=== PATIENT | male | born 1945 | race Caucasian/White ===

== ENCOUNTER → 2021-03-07 08:18 | Outpatient (CLI) | payer MEDICARE, SELFPAY ==
--- NOTE | 2021-03-07 08:23 | US_ITS ---
PROCEDURE: US ABDOMEN LIMITED CLINICAL INDICATION: RUQ ABD PAIN COMPARISON: No exams were available for comparison FINDINGS: PANCREAS: Unremarkable. No obvious mass or abnormal fluid collection. No ductal dilatation LIVER: No focal liver lesions demonstrated. Homogeneous echogenicity. No intrahepatic biliary ductal dilatation evident. There is appropriate direction of blood flow within a non dilated portal vein RIGHT KIDNEY: Unremarkable. Normal size and echogenicity. No hydronephrosis GALLBLADDER: Gallbladder somewhat distended at 10 4 cm. No gallstones, pericholecystic fluid, or biliary dilatation is evident. Common bile duct is normal at 2 mm. IMPRESSION: Mildly distended gallbladder possibly due to patient's fasting state otherwise negative gallbladder ultrasound Dictated by: Ortega Garcia MD 03/07/2021 15:31 Ortega Garcia MD in [place] 03/07/2021 15:31
== END ==
PROVIDERS: PCP Family Medicine; Visit Provider Family Medicine
DX: R10.11 Right upper quadrant pain (principal)
CPT/HCPCS: 76705

== ENCOUNTER → 2021-03-21 08:51 | Outpatient (CLI) | payer MEDICARE, SELFPAY ==
[2021-03-21 10:09] LABS: Blood Urea Nitrogen 12 mg/dl (9-20); Estimated Glomerular Filt Rate 82 ml/min (>60); GFR (African American) 100 ML/MIN (>60)
== END ==
PROVIDERS: Visit Provider Surgery
DX: Z01.812 Encounter for preprocedural laboratory examination (principal); Z11.52 Encounter for screening for COVID-19; Z12.11 Encounter for screening for malignant neoplasm of colon
CPT/HCPCS: 36415; 82565; 84520; U0003

== ENCOUNTER 2021-03-24 10:57 | Day surgery (SDC) | payer MEDICARE, SELFPAY ==
[2021-03-19 09:38] VITALS: BMI 27.6
[2021-03-24 11:39] VITALS: BP 133/85; PULSE 51; RESP 18; TEMP 36.2; O2SAT 97
[2021-03-24 12:07] VITALS: O2SAT 97
--- NOTE | 2021-03-24 12:43 | HMH.ANESCL ---
[facility] Anesthesia Checklist - Structural Data Admitted From: Home Planned Operative Procedure/s: colonoscopy Consent for Planned Operative Procedure(s) Verified: Yes - Additional verifications Anesthesia Reactions: No - Airway Assessment C-Spine Mobility Assessed: Yes TMJ Mobility Assessed: Yes Dentition: Poor Dentition - Neurological Assessment Level of Consciousness: Awake, Alert, Appropriate - Anesthesia Plan Anesthesia Risk discussed: Yes Anesthesia Plan: Verified ASA Class: II Anesthesia Type: MAC [facility] History I have reviewed the patient's past medical history: Yes Medical History: Denies:: Cancer, Diabetes Mellitus Type 1, Diabetes Mellitus Type 2, Internal Pacemaker, Lung Disease, MRSA, Seizures *Have you ever received a pneumonia vaccine?: Yes *Have you received a flu vaccine this season?: Yes Anesthesia experience/problems:: none Other Surgeries: Yes: Appendectomy, Colonoscopy. No: Pacemaker Amputation: No Fractures: No - *Social History Smoking Status: Never smoker Alcohol Intake: current Substance Use Type: denies use *Occupational Status:: retired Housing: house Household Members: spouse *Travel in the last 8 weeks: None Family Hx:: No significant family history
[2021-03-24 12:50] VITALS: BP 128/72; PULSE 71; RESP 12; TEMP 36.3; O2SAT 94
--- NOTE | 2021-03-24 12:51 | HMH.PROC ---
[facility] Procedure Note Procedure Note:: Colonoscopy Procedure Report: Colonoscopy with cold snare polypectomy Endoscopist: Leander Lizarraga II, MD Referring physician: Parvez Corbin MD Date of Procedure: March 24, 2021 Equipment: Olympus 190 variable stiffness pediatric colonoscope Sedation: MAC sedation Indication: Mr. Cazares is a 75-year-old gentleman who had a wide-based ascending colon polyp in February 2017. This was removed in piecemeal and was adenomatous. He had a repeat surveillance colonoscopy on March 14, 2018 and had 3 colon polyps (ascending x1 (13 mm) and diminutive descending and sigmoid x2) which were removed. The patient reports no abdominal pain, weight loss, change in his bowel habits or rectal bleeding. He does take Konsyl daily. He reports no family history of colon cancer. He has had some recent right flank abdominal pain. His recent ultrasound of the gallbladder did show some gallbladder distention but this was felt to be related to the fasting state. He is due for CT scan of the abdomen. Procedure: Prior to the procedure, a history and physical exam was performed, and patient's medications and allergies were reviewed. The risks, benefits and alternatives of the sedation and procedure were discussed with the patient. All questions were answered and informed consent was obtained. The patient was brought to the procedure room. Patient identification and proposed procedure were verified by the physician and the nurse. The patient was placed in a left lateral decubitus position and the scope was passed under direct vision. Throughout the procedure, the patient's blood pressure, pulse, and oxygen saturations were monitored continuously. The colonoscopy was accomplished without difficulty. The patient tolerated the procedure well. Findings: On digital rectal examination there was normal rectal tone. There were no external hemorrhoids. The colonoscope was introduced through the anal canal to the rectum and advanced to the cecum. The ileocecal valve and appendiceal orifice were identified. The scope was advanced a short distance into the ileum which appeared grossly normal. The scope was then withdrawn into the colon. The cecum was normal. Once again within the ascending colon was a very flat wide-based polyp that extended nearly 1/3 the circumference of the colon and was maximally greater than 30 mm in width over at least 1 haustral fold. Piecemeal removal was performed. There was a second diminutive 4 mm polyp in the rectum. There were scattered diverticuli throughout the descending and sigmoid colon (LEFT colon). The rectum itself was normal. Upon retroflexion within the rectum there were grade 2 internal hemorrhoids. The preparation was excellent throughout with [place] Preparation Score of 9. The cecal time was 12 minutes. Impression: 1. Large advanced adenomatous polyp (ascending colon)?greater than 30 mm width over haustral fold 2. Diminutive rectal polyp 3. Left-sided diverticulosis 4. Grade 2 internal hemorrhoids Plan: I do feel that the ascending colon polyp may require EMR or EMD (endoscopic mucosal dissection). I will discuss this with the patient and family. I will follow-up patient's upcoming CT scan. I would like to obtain liver/pancreatic chemistries as well.
[2021-03-24 13:00] VITALS: BP 140/42; PULSE 65; RESP 16; O2SAT 99
[2021-03-24 13:10] VITALS: BP 141/80; PULSE 67; RESP 16; O2SAT 99
[2021-03-24 13:20] VITALS: BP 140/82; PULSE 60; RESP 16; TEMP 36.3; O2SAT 99
[2021-03-24 13:32] LABS: Basophils % 0.4 % (0.1-2.0); Eosinophils # 0.1 K/mm3 (0.0-0.4); Eosinophils % 2.3 % (0.1-12.0); Hematocrit 42.3 % (42.0-52.0); Hemoglobin 14.7 g/dL (14.1-18.0); Lymphocytes # 1.2 K/mm3 (0.7-4.5); Lymphocytes % 25.8 % (10-50); Mean Corpuscular HGB Conc 34.7 g/dL (31.8-35.4); Mean Corpuscular Hemoglobin 31.1 pg (27.0-31.2); Mean Corpuscular Volume 89.6 fl (80-94); Monocytes # 0.3 K/mm3 (0.1-1.0); Monocytes % 5.8 % (1.7-9.3); Neutrophils # 3.1 K/mm3 (1.8-7.8); Neutrophils % 65.8 % (37.0-80.0); Platelet Count 222 K/mm3 (142-424); Red Blood Count 4.72 M/mm3 (4.60-6.20); Red Cell Distribution Width 13.6 % (11.5-17.5); White Blood Count 4.7 K/mm3 (4.8-10.8)
[2021-03-24 13:36] LABS: Chloride 104 mmol/L (98-107)
[2021-03-24 13:37] LABS: Potassium 4.6 mmoL/L (3.5-5.1); Sodium 140 mmol/L (136-145)
[2021-03-24 13:39] LABS: Alanine Aminotransferase 23 U/L (12-78); Aspartate Amino Transferase 28 U/L (17-59); Blood Urea Nitrogen 8 mg/dl (9-20); Creatinine Clearance Estimated 81 mL/min (50-200); Estimated Glomerular Filt Rate 94 ml/min (>60); GFR (African American) 114 ML/MIN (>60)
[2021-03-24 13:40] LABS: Albumin Level 3.8 g/dl (3.5-5.0); Albumin/Globulin Ratio 1.3 (1.1-1.8); Alkaline Phosphatase 37 U/L (38-126); Anion Gap 11.6 mEq/L (5-15); Bilirubin,Total 0.5 mg/dl (0.2-1.3); Calcium 8.7 mg/dl (8.4-10.2); Carbon Dioxide 29 mmol/L (22.0-30.0); Globulin 2.9 g/dL (1.3-3.2); Glucose 102 mg/dl (74-100); Total Protein,Serum 6.7 g/dl (6.3-8.2)
[2021-03-24 13:54] LABS: Alanine Aminotransferase 22 U/L (12-78); Aspartate Amino Transferase 27 U/L (17-59)
[2021-03-24 13:55] LABS: Iron 89 ug/dL (49-181); Lipase 71 U/L (23-300)
[2021-03-24 13:56] LABS: Amylase < 30 U/L (30-110)
== END 2021-03-24 13:24 | disposition home or self-care (01) ==
LOC: OUTP 11:00
PROVIDERS: PCP Family Medicine; Visit Provider Internal Medicine Gastroenterology
PROC: 0DJD8ZZ Inspection of Lower Intestinal Tract, Via Natural or Artificial Opening Endoscopic (ICD-10-PCS; CPT 45378; principal; 2021-03-24 12:00)
DX: Z12.11 Encounter for screening for malignant neoplasm of colon (principal); K64.1 Second degree hemorrhoids; K63.5 Polyp of colon; K62.1 Rectal polyp; K57.30 Diverticulosis of large intestine without perforation or abscess without bleeding; Z86.010 Personal history of colon polyps
CPT/HCPCS: 45385; 36415; 80053; 82150; 83540; 83690; 84450; 84460; 85025; 88305

== ENCOUNTER → 2021-03-25 08:46 | Outpatient (CLI) | payer MEDICARE, SELFPAY ==
--- NOTE | 2021-03-25 08:46 | CT_ITS ---
PROCEDURE: CT ABDOMEN PELVIS W CON CLINICAL INDICATION: abdominal pain Right upper quadrant pain, right-sided pain COMPARISON: No exams were available for comparison TECHNIQUE: IV Contrast: 75ML Isovue 370 Oral Contrast 450ml Redicat Axial images obtained with sagittal and coronal reformats. All CT scans at the facility use one or more dose reduction, viz: automated exposure control, ma/kV adjustment per patient size (including targeted exams where dose is matched to indication, i.e. head), or iterative reconstruction technique. FINDINGS: LOWER THORAX: 6 mm subpleural nodule right middle lobe anteriorly nonspecific incompletely image. Small hiatal hernia. ABDOMEN & PELVIS: Fatty liver. The spleen, pancreas, and left adrenal gland have an unremarkable appearance. There is a 1.6 cm right adrenal nodule which is indeterminate. Unremarkable appearing gallbladder. No renal or ureteral calculi. No hydronephrosis. Given history of prior appendectomy. No intestinal obstruction or free air. Colonic diverticula are present. No evidence of diverticulitis. The prostate is slightly prominent at 4.9 cm. Unremarkable appearing urinary bladder. No pelvic mass or abnormal fluid collection. There are small bilateral inguinal hernias containing fat. Atherosclerotic changes are present within the abdominal aorta with minimal ectasia of the aorta at 2.6 cm. No acute bony findings. IMPRESSION: 1. No acute finding. 2. Indeterminate right adrenal nodule. Adrenal CT without and with contrast and with delayed imaging may further characterize. 3. Colonic diverticulosis without diverticulitis. 4. Minimal fusiform dilatation of the mid abdominal aorta at 2.6 cm. 5. Nonspecific 6 mm right middle lobe subpleural nodule. Consider six-month follow-up to confirm stability Dictated by: Ortega Garcia MD 03/26/2021 07:26 Ortega Garcia MD in [place] 03/26/2021 07:26
== END ==
PROVIDERS: PCP Family Medicine; Visit Provider Surgery
DX: R10.9 Unspecified abdominal pain (principal); R10.11 Right upper quadrant pain
CPT/HCPCS: 74177; Q9967

== ENCOUNTER → 2021-03-27 10:14 | Outpatient (CLI) | payer MEDICARE, SELFPAY ==
--- NOTE | 2021-03-27 10:14 | NM_ITS ---
PROCEDURE: NM HEPATOBILIARY W PHARM CLINICAL INDICATION: Right upper quad pain COMPARISON: No exams were available for comparison TECHNIQUE: DOSE: 7.92 mCi technetium Choletec FINDINGS: Homogeneous activity is present within the hepatic parenchyma. Activity is present in the gallbladder by 25 minutes. Activity is present in the small bowel by 10 minutes. The gallbladder ejection fraction is calculated to be 73 percent. No pain reported with fatty meal ingestion IMPRESSION: Normal hepatobiliary scan and gallbladder ejection fraction Dictated by: Ortega Garcia MD 03/27/2021 15:54 Ortega Garcia MD in [facility] 03/27/2021 15:54
== END ==
PROVIDERS: PCP Family Medicine; Visit Provider Surgery
DX: R10.11 Right upper quadrant pain (principal)
CPT/HCPCS: 78227; A9537

== ENCOUNTER → 2021-04-07 09:26 | Outpatient (CLI) | payer MEDICARE, SELFPAY | PROVIDERS: Visit Provider Internal Medicine Gastroenterology | DX: Z01.812 Encounter for preprocedural laboratory examination (principal); Z11.52 Encounter for screening for COVID-19 | CPT/HCPCS: U0003 ==

== ENCOUNTER → 2021-12-25 08:35 | Outpatient (CLI) | payer MEDICARE, SELFPAY ==
[2021-12-25 09:11] LABS: Blood Urea Nitrogen 15 mg/dl (9-20); Estimated Glomerular Filt Rate 73 ml/min (>60); GFR (African American) 88 ML/MIN (>60)
--- NOTE | 2021-12-25 10:13 | CT_ITS ---
FINAL REPORT TECHNIQUE: After the administration of intravenous contrast, axial images through the chest were performed by computed tomography. This study was performed with techniques to keep radiation doses as low as reasonably achievable, (ALARA). Individualized dose reduction techniques using automated exposure control or adjustment of mA and/or kV according to the patient's size were employed. CLINICAL HISTORY: pulmonary nodule, 6 mos fu to previous scan here, Nonspecific 6 mm right middle lobe subpleural nodule. COMPARISON: Abdomen and pelvis CT dated March 25, 2021 FINDINGS: Mediastinal vasculature is well opacified. There is no axillary adenopathy. There is no hilar or mediastinal adenopathy. The heart size is normal. There is no pericardial or pleural effusion. There is a small hiatal hernia. Limited images of the upper abdomen are unremarkable. The lung window images demonstrate a linear pleural based density in the right middle lobe measuring approximately 5 mm in greatest dimension. This is well seen on image 55 of series 4. It is stable as compared to previous. There is mild biapical pleural and parenchymal scarring. IMPRESSION: Stable pleural based opacity in the right middle lobe, favored favor to be post inflammatory. Reviewed, Interpreted and Dictated by Ramiro Abraham MD Transcribed by Ashley James Authenticated by Ramiro Abraham MD on 12/25/2021 02:21:07 PM [facility]
--- NOTE | 2021-12-25 10:22 | CT_ITS ---
FINAL REPORT TECHNIQUE: Pre- and postcontrast images of the abdomen were performed by computed tomography. This study was performed with techniques to keep radiation doses as low as reasonably achievable (ALARA). Individualized dose reduction techniques using automated exposure control or adjustment of mA and/or kV according to the patient's size were employed. CLINICAL HISTORY: abdominal pain, This is a 6 mos f/u to a previous scan that was done here. concern for nodule on right adrenal COMPARISON: March 25, 2021 FINDINGS: There is scarring in the lung bases. There is a small sliding-type hiatal hernia. There is mild fatty infiltration of the liver. The spleen is unremarkable. The left adrenals is normal. A right adrenal nodule is again seen measuring approximately 2 cm in greatest dimension. It demonstrates a mean attenuation value of 1 Hounsfield units on the pre infusion images, 52 Hounsfield units on the dynamic infused images and 21 Hounsfield units on the 10 minute delayed images. Overall, features are consistent with a benign adenoma. The pancreas is unremarkable. The kidneys enhance appropriately. There are moderate vascular calcifications in the abdominal aorta and iliac vessels. 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 Reviewed, Interpreted and Dictated by Ramiro Abraham MD Transcribed by Ashley James Authenticated by Ramiro Abraham MD on 12/25/2021 02:21:12 PM [facility]
== END ==
PROVIDERS: PCP Family Medicine; Visit Provider Surgery
DX: E27.8 Other specified disorders of adrenal gland (principal); R91.8 Other nonspecific abnormal finding of lung field
CPT/HCPCS: 36415; 71260; 74170; 82565; 84520; Q9967

== ENCOUNTER → 2022-01-05 10:08 | Outpatient (CLI) | payer MEDICARE, SELFPAY | PROVIDERS: Visit Provider Internal Medicine Gastroenterology | DX: Z01.812 Encounter for preprocedural laboratory examination (principal); Z11.52 Encounter for screening for COVID-19 | CPT/HCPCS: C9803; U0003; U0005 ==

== ENCOUNTER → 2023-08-04 12:35 | Outpatient (CLI) | payer MEDICARE, SELFPAY ==
[2023-08-04 14:32] LABS: Prostate Specific Ag Screen 2.9 ng/ml (0.0-4.0)
== END ==
PROVIDERS: PCP Family Medicine; Visit Provider Family Medicine
DX: Z12.5 Encounter for screening for malignant neoplasm of prostate (principal)
CPT/HCPCS: 36415; G0103

== ENCOUNTER 2025-02-15 10:06 | Outpatient (CLI) | payer MEDICARE, SELFPAY ==
--- NOTE | 2025-02-15 | US_ITS ---
FINAL REPORT CLINICAL HISTORY: ABNORMAL SCREENING OF TOES BY HOME HEALTH NURSE FINDINGS: ANKLE-BRACHIAL PRESSURE INDICES Pressure indices are as follows: RIGHT LOWER EXTREMITY: Ankle-brachial pressure index: 1.34 Comments: Normal LEFT LOWER EXTREMITY: Ankle-brachial pressure index: 1.33 Comments: Normal IMPRESSION: No evidence of significant obstructive peripheral vascular disease of the lower extremities Reviewed, Interpreted and Dictated by Heavenly Abarca MD Transcribed by Karly More Authenticated and [facility]
== END 2025-02-15 23:59 | disposition home or self-care (01) ==
LOC: RT 10:08
PROVIDERS: PCP Family Medicine; Visit Provider Family Medicine
DX: I73.9 Peripheral vascular disease, unspecified (principal)
CPT/HCPCS: 93923

== ENCOUNTER 2025-04-26 07:20 | Day surgery (SDC) | payer MEDICARE, SELFPAY ==
[2025-04-24 14:25] VITALS: BMI 28.7
--- NOTE | 2025-04-25 10:54 | EXP.HP ---
History of Present Illness *Admission Date: 04/25/25 *Reason for visit:: Personal history of adenomatous colon polyps *History of present illness: Mr. Cazares is a 79-year-old gentleman who is here for follow-up screening/surveillance colonoscopy. He had a wide-based ascending colon polyp (adenomatous) in February 2017. This was removed in piecemeal and was adenomatous. He had a repeat surveillance colonoscopy on March 14, 2018 and had 3 colon polyps (ascending x1 (13 mm) and diminutive descending and sigmoid x2) which were removed. His last colonoscopy in March 2021 did show a 30 mm advanced adenoma of the ascending colon which was removed via piecemeal resection and extended one third the circumference of the colon. Pathology showed tubular adenoma without high-grade dysplasia. [facility] Disclaimer: The information contained in this section may have been updated after the patient was seen, as this information can be updated by other users. Medical History GERD (gastroesophageal reflux disease) Hypertension Surgical History Colonoscopy planned History of appendectomy Family History Other No significant family history Social History (Updated 04/26/25 @ 08:19 by Anjali Alaniz RN) Smoking Status: Never smoker alcohol intake: never substance use type: denies use current occupational status: retired Travel in the last 8 weeks?: None household members: spouse housing: house current occupational exposures/hazards: No caffeine: Yes Have you lived/traveled outside US in past 30 days?: No Contact w/someone who lives/traveled outside US past 30 days?: No Exposure to someone with infectious disease in past 14 days?: No Do you have a fever (greater than 100.4 F or 38 C)?: No Have you tested positive for COVID-19?: No Exposed to someone with COVID-19 in past 14 days?: No Do you have a sore throat?: No Do you have a cough?: No Do you have any weakness?: No Are you experiencing any nausea/vomitting?: No Do you have any diarrhea?: No Are you experiencing any unusual bleeding?: No Do you have any muscle aches/pain?: No Do you have any abdominal pain?: No Are you experiencing loss of taste or smell?: No Other Medical History Have you received the Flu Vaccine for this season: Yes Have you received the Pneumonia Vaccine: Yes Review of Systems Review of Systems Review of systems (narrative): Negative *Cardiovascular Comments: Negative *Gastrointestinal Comments: Negative *Genitourinary Comments: Negative *Musculoskeletal Comments: Negative *Neurologic Comments: Negative Meds Home Medications and Allergies Home Medications ?Medication ?Instructions ?Recorded ?Confirmed ?Type omeprazole magnesium 20 mg 20 mg PO DAILY GERD 03/14/21 04/24/25 History tablet,delayed release (Prilosec OTC) sodium,potassium,mag sulfates 17.5 See Rx Instructions PO .COMPLEX 04/13/25 Rx gram-3.13 gram-1.6 gram oral soln #354 mL (Suprep Bowel Prep Kit) irbesartan 300 mg tablet 300 mg PO DAILY 04/26/25 04/26/25 History New Prescriptions to Start Prescriptions: Allergies Allergy/AdvReac Type Severity Reaction Status Date / Time No Known Drug Allergies Allergy Unknown na Verified 04/26/25 08:23 (NKDA) Exam Data for Last 24 hours I & O for Last 24 hours: Intake & Output 04/22/25 04/23/25 04/24/25 04/25/25 23:59 23:59 23:59 23:59 Weight 200 lb *Routine HEENT Exam Head: Present normocephalic Eye: Present EOMI and PERRL ENT: Present mucous membranes moist *Routine Neck Exam Neck: Present supple *Routine Respiratory Exam Respiratory: Present CTA bilaterally *Routine Cardiovascular Exam Cardiovascular: Present RRR *Routine Abdominal Exam Abdominal: Present soft and normoactive bowel sounds; Absent tenderness *Routine Rectal Exam Rectal:: deferred *Routine Genitalia Exam Genitalia:: deferred *Routine Extremities Exam Extremities: Absent cyanosis, clubbing or edema *Routine Skin Exam Skin: Present warm; Absent rash *Routine Neurological Exam Neurological: Present alert and oriented X3 Assessment and Plan *Assessment and plan (1) Personal history of adenomatous and serrated colon polyps: Status: Acute Category: Medical Code(s): Z86.0101 - Personal history of adenomatous and serrated colon polyps (2) Screening for colon cancer: Status: Acute Category: Medical Code(s): Z12.11 - Encounter for screening for malignant neoplasm of colon (3) Adenomatous polyp of ascending colon: Status: Acute Category: Medical Code(s): D12.2 - Benign neoplasm of ascending colon Plan A/P: 1. Large advanced adenomatous colon polyp of ascending colon and personal history of adenomatous colon polyps is the preprocedural diagnosis. The patient will be anesthetized/sedated using MAC sedation. The patient has been seen and examined. Cardiac and lung assessment prior to the examination is stable. Proceed with planned surveillance colonoscopy.
[2025-04-26 08:10] VITALS: BP 186/81; PULSE 51; RESP 16; TEMP 36.2; O2SAT 98; BMI 28.7
[2025-04-26] MEDS: LACTATED RINGERS 1000ML 1,000 ML 50 ML IV (08:21)
--- NOTE | 2025-04-26 08:32 | EXP.ANES.CKL ---
[facility] Disclaimer: The information contained in this section may have been updated after the patient was seen, as this information can be updated by other users. Medical History GERD (gastroesophageal reflux disease) Hypertension Surgical History Colonoscopy planned History of appendectomy Family History Other No significant family history Social History (Updated 04/26/25 @ 08:19 by Anjali Alaniz RN) Smoking Status: Never smoker alcohol intake: never substance use type: denies use current occupational status: retired Travel in the last 8 weeks?: None household members: spouse housing: house current occupational exposures/hazards: No caffeine: Yes Have you lived/traveled outside US in past 30 days?: No Contact w/someone who lives/traveled outside US past 30 days?: No Exposure to someone with infectious disease in past 14 days?: No Do you have a fever (greater than 100.4 F or 38 C)?: No Have you tested positive for COVID-19?: No Exposed to someone with COVID-19 in past 14 days?: No Do you have a sore throat?: No Do you have a cough?: No Do you have any weakness?: No Are you experiencing any nausea/vomitting?: No Do you have any diarrhea?: No Are you experiencing any unusual bleeding?: No Do you have any muscle aches/pain?: No Do you have any abdominal pain?: No Are you experiencing loss of taste or smell?: No [facility] Anesthesia Checklist Patient Identification Patient Identification: Arm Band and Verbal (Name & ) Structural Data Admitted From: Home Planned Operative Procedure/s: colonoscopy Verified Documents: Surgical Consent NPO Status Verified Time NPO: 00:00 Chart Verification Results Verified: None Additional verifications Anesthesia Reactions: No Airway Assessment Mallampati Score:: Class II C-Spine Mobility Assessed: Yes TMJ Mobility Assessed: Yes Dentition: Good Dentition Neurological Assessment Level of Consciousness: Awake, Alert and Appropriate Hx Seizures: No Numbness or tingling in extremities: No Anesthesia Plan Anesthesia Risk discussed: Yes Anesthesia Plan: Verified ASA Class: II Anesthesia Type: MAC
--- NOTE | 2025-04-26 08:57 | HMH.PROCNOTE ---
[facility] Procedure Note Date: 04/26/25 Time: 09:33 Procedure Note:: Colonoscopy Procedure Report: Colonoscopy with EMR (endoscopic mucosal resection (submucosal injection and snare cautery with soft coagulation) and cold snare polypectomy Endoscopist: Leander Lizarraga II, MD Referring physician: Parvez Corbin MD Date of Procedure: April 26, 2025 Equipment: Olympus [id number] adult colonoscope Sedation: MAC sedation Indication: Mr. Cazares is a 79-year-old gentleman who is here for follow-up screening/surveillance colonoscopy. He had a wide-based ascending colon polyp (adenomatous) in February 2017. This was removed in piecemeal and was adenomatous. He had a repeat surveillance colonoscopy on March 14, 2018 and had 3 colon polyps (ascending x1 (13 mm) and diminutive descending and sigmoid x2) which were removed. His last colonoscopy in March 2021 did show a 30 mm advanced adenoma of the ascending colon which was removed via piecemeal resection and extended one third the circumference of the colon. Pathology showed tubular adenoma without high-grade dysplasia. The patient was referred to the [facility] where he had EMR (endoscopic mucosal resection) and states that the polyp was completely removed. He reports no abdominal pain, weight loss, change in his bowel habits or rectal bleeding. He reports no family history of colon cancer. Procedure: Prior to the procedure, a history and physical exam was performed, and patient's medications and allergies were reviewed. The risks, benefits and alternatives of the sedation and procedure were discussed with the patient. All questions were answered and informed consent was obtained. The patient was brought to the procedure room. Patient identification and proposed procedure were verified by the physician and the nurse. The patient was placed in a left lateral decubitus position and the scope was passed under direct vision. Throughout the procedure, the patient's blood pressure, pulse, and oxygen saturations were monitored continuously. The colonoscopy was accomplished without difficulty. The patient tolerated the procedure well. Findings: On digital rectal examination there was normal rectal tone. There were no external hemorrhoids. The prostate was 2+, mildly firm but symmetric without nodules. The colonoscope was introduced through the anal canal to the rectum and advanced to the cecum. The ileocecal valve and appendiceal orifice were identified. The scope was advanced a short distance into the ileum which appeared grossly normal. The scope was then withdrawn into the colon. The cecum was normal. Within the mid ascending colon was residual flat adenoma (laterally spreading granular adenoma along the haustral fold and was approximately 11 to 12 mm. Because of the flat nature, the base of the polyp was raised with 9 to 10 mL of Eleview which was injected submucosally. It was flat and the 13 mm hot snare was 2 blocks so the cold sharp snare/Exacto snare was utilized to completely resect and remove the polyp. Next, soft coagulation was utilized with the hot snare along the margins of the polypectomy site along with the base of the polypectomy. There was no residual polyp identified on anterograde and retrograde views of this area. There was another 4 mm polyp in the descending colon removed via cold snare polypectomy. There were scattered diverticuli throughout the descending and sigmoid colon (LEFT colon). The rectum itself was normal. Upon retroflexion within the rectum there were grade 1-2 internal hemorrhoids. The preparation was excellent throughout with Mansfield Preparation Score of 9. The cecal time was 16 minutes. Impression: 1. Residual flat ascending polyp (11 to 12 mm laterally spreading granular adenoma) status post EMR 2. Diminutive descending polyp (4 mm) 3. Left-sided diverticulosis 4. Grade 1-2 internal hemorrhoids Plan: I will follow-up the polyp histology and discuss whether further surveillance is warranted. I would encourage psyllium fiber supplementation on a maintenance basis.
[2025-04-26 09:36] VITALS: BP 101/53; PULSE 57; RESP 16; TEMP 36.3; O2SAT 95
[2025-04-26 09:46] VITALS: BP 95/52; PULSE 52; RESP 16; O2SAT 96
[2025-04-26 09:56] VITALS: BP 102/60; PULSE 50; RESP 16; O2SAT 96
[2025-04-26 10:05] VITALS: BP 127/73; PULSE 53; RESP 18; O2SAT 98
== END 2025-04-26 10:06 | disposition home or self-care (01) ==
PROVIDERS: PCP Family Medicine; Visit Provider Internal Medicine Gastroenterology
PROC: 0DJD8ZZ Inspection of Lower Intestinal Tract, Via Natural or Artificial Opening Endoscopic (ICD-10-PCS; CPT 45378; principal; 2025-04-26 09:00)
DX: Z12.11 Encounter for screening for malignant neoplasm of colon; K57.30 Diverticulosis of large intestine without perforation or abscess without bleeding; K64.1 Second degree hemorrhoids; K63.5 Polyp of colon; Z86.0101 Personal history of adenomatous and serrated colon polyps; K21.9 Gastro-esophageal reflux disease without esophagitis; I10 Essential (primary) hypertension; Z79.899 Other long term (current) drug therapy
CPT/HCPCS: 45385; 45390; 88305; J2003; J2704; J7120

== ENCOUNTER 2025-06-18 09:20 | Outpatient (CLI) | payer MEDICARE, SELFPAY ==
--- OUTSIDE RECORDS SUMMARY | 2024-05-12 05:30 | XMS_ITS ---
Author Organization [facility] Address [address] [place] [id number] Care Team Providers Care Radio Interference Expert Name Role Phone Shaquille Parvez Primary Care Provider Allergies No Known Allergies Results Component Value Reference Range Notes Glucose (In-House) Reviewed date:05/17/2024 10:27:01 AM Interpretation:136 Performing Lab: Notes/Report: 136 blood glucose 136 74 - 106 mg/dL CBC Venipuncture (in house) Reviewed date:05/17/2024 10:27:01 AM Interpretation: Performing Lab: Notes/Report: wbc 5.4 3.5 - 10 lymph 28.9% 15 - 50 mid 6.4% 2 - 15 gran 64.7% 35 - 80 rbc 5.26 3.5 - 5.5 hgb 16.1 11.5 - 16.5 hct 49.1 35 - 55 mcv 93.3 75 - 100 mch 30.5 25 - 35 mchc 32.7 31 - 38 platlet 231 100 - 400 Glycohemoglobin A1c (in hous e) Reviewed date:05/17/2024 10:27:01 AM Interpretation:5.9 Performing Lab: Notes/Report: 5.9 glycohemoglobin 5.9% 5 - 6.5 % P-Comprehensive Metabolic Pa víctor (CMP) Reviewed date:05/17/2024 10:26:59 AM Interpretation:gluc 123, alk phos 36 Performing Lab: Notes/Report: Test performed by [facility] [address] [facility] , [address], [place] [address] William Majano MD, Powerhouse Oiler CLIA: [id number] Sodium 141 135-145 mmol/L Potassium 4.8 3.5-5.3 mmol/L Chloride 104 97-108 mmol/L CO2 28 22-32 mmol/L Glucose 123 65-99 mg/dL BUN 12 8-23 mg/dL Creatinine 1.10 0.70-1.30 mg/dL Calcium 9.5 8.6-10.4 mg/dL eGFR by Creatinine 69 >59 mL/min/1.73m2 Protein 7.0 6.0-8.3 g/dL Albumin 4.3 3.5-5.3 g/dL Alkaline Phosphatase 36 40-129 IU/L ALT (SGPT) 17 <5-55 IU/L AST (SGOT) 16 <5-46 IU/L Bilirubin, Total 0.5 <0.2-1.2 mg/dL A/G Ratio 1.6 1.1-2.5 P-Lipid Panel Reviewed date:05/17/2024 10:27:00 AM Interpretation:trig 208, hdl 34, chol/hdl 5.79, non-hdl 163, ldl/hdl 3.6 Performing Lab: Notes/Report: Test performed by [facility] [address] [place] [address] , [address], [place] [address] William Majano MD, Powerhouse Oiler CLIA: [id number] Cholesterol 197 <200 mg/dL Triglycerides 208 <150 mg/dL HDL Cholesterol 34 >39 mg/dL Cholesterol / HDL Ratio 5.79 0.00-4.99 Ratio Non-HDL Cholesterol 163 <130 mg/dL LDL Cholesterol (Calculation) 121 <130 mg/dL LDL Cholesterol Levels* Less than 100 mg/dL Optimal 100 to 129 mg/dL Near Optimal/ Above Optimal 130 to 159 mg/dL Borderline High 160 to 189 mg/dL High 190 mg/dL and above Very High * Categories as recommended by the 2004 ATPIII guidelines LDL/HDL Ratio 3.6 <3.3 Ratio LDL Cholesterol Patient History Test Date: 03/19/2023 LDL Results: 130 Units: mg/dL % Change: - Test Date: 05/12/2024 LDL Results: 121 Units: mg/dL % Change: -6% P-Magnesium Reviewed date:05/17/2024 10:27:00 AM Interpretation:Normal Performing Lab: Notes/Report: Test performed by [facility] [address] [place] [address] [place] [address] William Majano MD, Powerhouse Oiler CLIA: [id number] Magnesium 2.1 1.6-2.4 mg/dL P-Phosphorus Reviewed date:05/17/2024 10:27:00 AM Interpretation:Normal Performing Lab: Notes/Report: Test performed by [facility] [address] [place] [address] [place] [address] William Majano MD, Powerhouse Oiler CLIA: [id number] Phosphorus 3.2 2.5-4.5 mg/dL P-TSH reflex to FT4 Reviewed date:05/17/2024 10:27:01 AM Interpretation:Normal Performing Lab: Notes/Report: Test performed by [facility] [address] [place] [address] [address] , [place] [address] William Majano MD, Powerhouse Oiler CLIA: [id number] TSH reflex to FT4 1.26 0.43-5.25 mU/L REASON FOR VISIT checkup and bloodwork Medications Medication SIG (Take, Route, Frequency, Duration) Notes Start Date End Date Status PriLOSEC OTC 20 MG 1 tab(s) orally once a day OTC 02/12 Active Meclizine HCl 25 MG 1 tablet as needed O rally every 8 hrs 05/12/2024 Active Tylenol 325 MG 2 tab(s) orally ever y 4 hours Active Claritin 10 MG 1 tab(s) orally once a day Active Sildenafil Citrate 20 MG 1 to 5 tablet O rally Once a day as needed 03/19/2023 Active Immunizations Vaccine Route Administration Date Status Comme nts Fluzone High Dose (65yr and older) IM Intramuscular 05/12/2024 Administered Prevnar (PCV20) IM Intramuscular 05/12/2024 Administered Problems Problem Type SNOMED Code ICD Code Onset Dates Problem Status W/U Status Risk Notes Problem Impaired fasting glycaemia (631143398) IFG (impaired fasting glucose) (R73.01) Active confirmed Vital Signs Weight 205 lbs 05/12/2024 Blood pressure systolic 130 mm Hg 05/12/20 24 Blood pressure diastolic 74 mm Hg 024 Heart Rate 64 /min 05/12/2024 Height 71 in 05/12/2024 BMI 28.59 kg/m2 05/12/2024 Encounters Encounter Location Date Provider Diagnosis [facility] [address] [facility] [address] [place], [place] [id number] 05/12/2024 Parvez [place] Pure hypercholestero lemia E78.00 ; Gastroesophageal reflux disease, unspecified whether esophagitis present K21.9 ; Dizziness R42 ; IFG (impaired fasting glucose) R73.01 ; Prostate cancer screening Z12.5 ; Encounter for immunization Z23 and Bilateral impacted cerumen H61.23 Assessments Encounter Date Diagnosis (ICD Code) Assessment Notes Treatment Notes Treatment Clinical Notes Section Notes 05/12/2024 Pure hypercholesterolemia (ICD-10 - E78.00) 05/12/2024 Gastroesophageal ref lux disease, unspecified whether esophagitis present (ICD-10 - K21.9) 05/12/2024 Dizziness (ICD-10 - R42) 05/12/2024 IFG (impaired fastin g glucose) (ICD-10 - R73.01) 05/12/2024 Prostate cancer screening (ICD-10 - Z12.5) 05/12/2024 Encounter for immunization (ICD-10 - Z23) 05/12/2024 Bilateral impacted cerumen (ICD-10 - H61.23) Plan Of Treatment Medication Medication Name Sig Start Date Stop Date Notes Meclizine HCl 25 MG 1 tablet as needed Orally every 8 hrs 05/12/2024 Next Appt Details Follow Up: 9 Months, Reason: Provider Name:Parvez [place], 08/15/2025 09:15:00 AM, [address], [address], [place], [place], [id number], Procedure Notes * Category Sub-Category Detail Notes Irrigation Of Ears Procedure Ear prepped b y soaking with H2O2, Flushed with peroxide and warm water Location Bilateral Progress Notes * JAZMIN PATELSTEFANIADOB:1945 ( 79 yo M)Acc No.[id number]:05/12/2024 Progress Notes Patient: GALEN KENNY Provider: Citlalli Corbin M.D. :1945 A ge:78 Y S ex:Male Date:05/12/2024 Address:[address] [address] , [place], [id number] Subjective: * Chief Complaints: * 1 . Checkup and bloodwork. * HPI: C ardiology: 78 year old male presents with c/o Hyperlipidemia P t here to f/u, states that he is fasting today. N eurology: c/o Dizziness P t complains of dizziness in the morning for the last 3 days. States that when he rolls over in bed it worsens but does improve throughout the day. * ROS: D ERMATOLOGY: no R alejandro. n o H negrito. G ASTROENTEROLOGY: no N ausea. n o V omiting. U ROLOGY: no D ifficulty urinating. n o B lood in urine. * Medical History: H yperlipidemia, PUD, Diverticulosis, Sigmoid, GI Bleed - 1991 & 1997, Anemia After GI Bleeding, Colon Polyps, Prostate Cancer Family Hx. * Surgical History: A ppendectomy , GI Bleed 1989', EGD 2006, Colonoscopy: 2006, 2017, 2018, 2020 x , 2021 . * Hospitalization/Major Diagno stic Procedure: D enies Past Hospitalization. * Family History: F ather: 83 yrs, diagnosed with Hypertension, Heart Disease, Cancer. M other: 87 yrs, heart condition, diagnosed with Hypertension. P aternal Grand Father: . Paternal Grand Mother: . M aternal Grand Father: . M aternal Grand Mother: . S iblings: alive 75 yrs. C hilen: alive. 1 sister(s) - healthy. 2 son(s) - healthy. . Father - Pancreatic Cancer. * Social History: C URRENT TOBACCO USE: No S moking Status: P atient does NOT smoke, F ormer Smoker:?Yes stopped smoking 25-30 years ago (2017), started smoking at age 16. C affeine: yes, frequency:daily. Exercise: yes, some. Home smoke detector use: yes. Marital Status: . New since last visit: none. Occupation: yes. Past smoking status: no. Occup. exposure: none. Recreational drug use: no. Alcohol: socially, Type: , Frequency: ,Years: , Determination:. Sexually active: yes. Travel ouside [place]: yes. * Medications: T aking Tylenol 325 MG Tablet 2 tab(s) orally every 4 hours , Taking Claritin 10 MG Tablet 1 tab(s) orally once a day , Taking Sildenafil Citrate 20 MG Tablet 1 to 5 tablet Orally Once a day as needed , Taking PriLOSEC OTC 20 MG Tablet Delayed Release 1 tab(s) orally once a day , Notes to Pharmacist: OTC, Medication List reviewed and reconciled with the patient * Allergies: N .K.D.A. Objective: * Vitals: W t:205, Temp:97.8, BP:130/74, HR:64, Nurse: padma, Ht: 71, BMI:28.59. * Examination: C ardiology: General Appearance: p leasant, NAD. H EENT: b oth TM's obstructed by cerumen. H eart sounds: R RR, normal S1, S2. L ungs: c lear, no rales or wheezes. E xtremities: n o leg edema. P eripheral pulses: 2 plus bilateral.? Assessment: * Assessment: 1. P ure hypercholesterolemia - E78.00 (Primary) 2 . G astroesophageal reflux disease, unspecified whether esophagitis present - K21.9 3 . D izziness - R42? 4. I FG (impaired fasting glucose) - R73.01 5 . P rostate cancer screening - Z12.5 6 . E ncounter for immunization - Z23 7 . B ilateral impacted cerumen - H61.23 Plan: * Treatment: Value Reference Range A /G Ratio 1.6 1.1-2.5 - * A lbumin 4.3 3.5-5.3 - g/dL * A lkaline Phosphatase 36 L 40-129 - IU/L * A LT (SGPT) 17 <5-55 - IU/L * A ST (SGOT) 16 <5-46 - IU/L * B ilirubin, Total 0.5 <0.2-1.2 - mg/dL * B UN 12 8-23 - mg/dL * C alcium 9.5 8.6-10.4 - mg/dL * C hloride 104 97-108 - mmol/L * C O2 28 22-32 - mmol/L * C reatinine 1.10 0.70-1.30 - mg/dL * G lucose 123 H 65-99 - mg/dL * P otassium 4.8 3.5-5.3 - mmol/L * S odium 141 135-145 - mmol/L * P rotein 7.0 6.0-8.3 - g/dL * e GFR by Creatinine 69 >59 - mL/min/1.73m2 * Christy Medina 05/17/2024 10:25 :05 AM >See phone encounter ?LAB: P-Lipid Panel (Collection Date & Time - 05/12/2024 09:06 AM)?trig 208, hdl 34, chol/hdl 5.79, non-hdl 163, ldl/hdl 3.6* Value Reference Range C holesterol / HDL Ratio 5.79 H 0.00-4.99 - Ratio * C holesterol 197 <200 - mg/dL * H DL Cholesterol 34 L >39 - mg/dL * L DL Cholesterol (Calculation) 121 <130 - mg/d L * L DL/HDL Ratio 3.6 H <3.3 - Ratio * N on-HDL Cholesterol 163 H <130 - mg/dL * T riglycerides 208 H <150 - mg/dL * Christy Medina 05/17/2024 10:25 :05 AM >See phone encounter ?LAB: P-TSH reflex to FT4 (Collection Date & Time - 05/12/2024 09:06 AM)? Normal* Value Reference Range T SH reflex to FT4 1.26 0.43-5.25 - mU/L * Christy Medina 05/17/2024 10:25 :05 AM >See phone encounter 2.?Dizziness? Start Meclizine HCl Tablet, 25 MG, 1 tablet as needed, Orally, every 8 hrs, 20, Refills 0.?LAB: P-Magnesium (Collection Date & Time - 05/12/2024 09:06 AM)?Normal* Value Reference Range M agnesium 2.1 1.6-2.4 - mg/dL * Christy Medina 05/17/2024 10:25 :05 AM >See phone encounter ?LAB: P-Phosphorus (Collection Date & Time - 05/12/2024 09:06 AM)?Normal* Value Reference Range P hosphorus 3.2 2.5-4.5 - mg/dL * Christy Medina 05/17/2024 10:2 5:05 AM >See phone encounter ?LAB: CBC Venipuncture (in house) (Collection Date & Time - 05/12/2024)* Value Reference Range w bc 5.4 3.5 - 10 * l ymph 28.9% 15 - 50 * m id 6.4% 2 - 15 * g ran 64.7% 35 - 80 * r bc 5.26 3.5 - 5.5 * h gb 16.1 11.5 - 16.5 * h ct 49.1 35 - 55 * m cv 93.3 75 - 100 * m ch 30.5 25 - 35 * m chc 32.7 31 - 38 * p latlet 231 100 - 400 * Miladis Felder 05/12/2024 11:56:3 7 AM > Christy Medina 05/17/2024 10:25:05 AM >See phone encounter 3.?IFG (impaired fasting glucose)?LAB: Glucose (In-House) (Collection Date & Time - 05/12/2024)?136* Value Reference Range b lood glucose 136 74 - 106 mg/dL * Miladis Felder 05/12/2024 11:54:5 7 AM > Christy Medina 05/17/2024 10:25:05 AM >See phone encounter ?LAB: Glycohemoglobin A1c (in house) (Collection Date & Time - 05/12/2024)? 5.9* Value Reference Range g lycohemoglobin 5.9% 5 - 6.5 % * Miladis Felder 05/12/2024 11:55:1 7 AM > Christy Medina 05/17/2024 10:25:05 AM >See phone encounter * Procedures: I rrigation Of Ears: Procedure E ar prepped by soaking with H2O2, Flushed with peroxide and warm water. L ocation B ilateral. * Immunizations: Fluzone High Dose (65yr and older) : 0.7 mL (Route: Intramuscular) given by Miladis Felder on Left Deltoid (Encounter for immunization) Prevnar (PCV20) : 0.5 mL (Route: Intramuscular) given by Miladis Felder on Right Deltoid (Encounter for immunization) * Procedure Codes: G 2211 Complex e/[place], [address] CBC WITH AUTO DIFF, 82052 GLUCOSE TEST, 05163 GLYCATED HEMOGLOBIN TEST, Modifiers: QW * Follow Up: 9 Months * Images: Billing Information: * Visit Code: 35977 Office Visit, Est Pt., Level 4. * Procedure Codes: G2211 Complex e/[place]. [address] CBC WITH AUTO DIFF. 17029 GLUCOSE TEST. 79186 GLYCATED HEMOGLOBIN TEST. Modifiers: QW * Electronic signature of Ginette Corbin MD on 06/18/2025 at 09:31 AM EDT Sign off status: Pending * Provider: Citlalli Corbin M.D. Date: 0 05/12/2024 Generated for Jayden thompson/Yovany/eTransmitting on: 1 09:31 AM EDT History and Physical Notes * HPI (History of Present Illness) Category Sub-Category Detail Notes Category Not es Neurology Dizziness Pt complains of dizziness in the morning for the last 3 days. States that when he rolls over in bed it worsens but does improve throughout the day Cardiology Hyperlipidemia Pt here to f/u, states that he is fasting today Examination Category Sub-Category Detail Notes Category Not es Cardiology Lungs: clear, no rales or wheezes HEENT: both TM's obstructed by cerumen Heart sounds: RRR, normal S1, S2 Extremities: no leg edema Peripheral pulses: 2 plus bilateral General Appearance: pleasant, NAD
--- OUTSIDE RECORDS SUMMARY | 2025-02-08 06:30 | XMS_ITS ---
Author Organization [facility] Address [address] [place] [id number] Care Team Providers Care Wholesale Diamond Broker Name Role Phone Shaquille Parvez Primary Care Provider [phone] Allergies No Known Allergies Results Component Value Reference Range Notes Glucose (In-House) Reviewed date:02/09/2025 09:20:18 AM Interpretation:136 Performing Lab: Notes/Report: 136 blood glucose 136 74 - 106 mg/dL CBC Venipuncture (in house) Reviewed date:02/09/2025 09:20:18 AM Interpretation: Performing Lab: Notes/Report: wbc 6.6 3.5 - 10 lymph 26.7% 15 - 50 mid 6.4% 2 - 15 gran 66.9% 35 - 80 rbc 5.39 3.5 - 5.5 hgb 16.5 11.5 - 16.5 hct 49.7 35 - 55 mcv 92.2 75 - 100 mch 33.3 25 - 35 mchc 232 31 - 38 Glycohemoglobin A1c (in hous e) Reviewed date:02/09/2025 09:20:18 AM Interpretation:6.1 Performing Lab: Notes/Report: 6.1 glycohemoglobin 6.1% 5 - 6.5 % P-Comprehensive Metabolic Pa víctor (CMP) Reviewed date:02/09/2025 09:20:18 AM Interpretation:gluc 110, alk phos 38 Performing Lab: Notes/Report: Test performed by [facility] , [address], [place] [address] William Majano MD, Forming Department Supervisor CLIA: [id number] Sodium 140 135-145 mmol/L Potassium 4.6 3.5-5.3 mmol/L Chloride 103 97-108 mmol/L CO2 27 22-32 mmol/L Glucose 110 65-99 mg/dL BUN 12 8-23 mg/dL Creatinine 1.04 0.70-1.30 mg/dL Calcium 9.6 8.6-10.4 mg/dL eGFR by Creatinine 73 >59 mL/min/1.73m2 Protein 7.4 6.0-8.3 g/dL Albumin 4.5 3.5-5.3 g/dL Alkaline Phosphatase 38 40-129 IU/L ALT (SGPT) 18 <5-55 IU/L AST (SGOT) 17 <5-46 IU/L Bilirubin, Total 0.5 <0.2-1.2 mg/dL A/G Ratio 1.6 1.1-2.5 P-Lipid Panel Reviewed date:02/09/2025 09:20:18 AM Interpretation:trigs 172, hdl 35, chol/hdl 5.46, non-hdl 156, ldl/hdl 3.5 Performing Lab: Notes/Report: Test performed by [employer], [address] , [address], [place] [address] William Majano MD, Forming Department Supervisor CLIA: [id number] Cholesterol 191 <200 mg/dL Triglycerides 172 <150 mg/dL HDL Cholesterol 35 >39 mg/dL Cholesterol / HDL Ratio 5.46 0.00-4.99 Ratio Non-HDL Cholesterol 156 <130 mg/dL LDL Cholesterol (Calculation) 122 <130 mg/dL LDL Cholesterol Levels* Less than 100 mg/dL Optimal 100 to 129 mg/dL Near Optimal/ Above Optimal 130 to 159 mg/dL Borderline High 160 to 189 mg/dL High 190 mg/dL and above Very High * Categories as recommended by the 2004 ATPIII guidelines LDL/HDL Ratio 3.5 <3.3 Ratio LDL Cholesterol Patient History Test Date: 03/19/2023 LDL Results: 130 Units: mg/dL % Change: - Test Date: 05/12/2024 LDL Results: 121 Units: mg/dL % Change: -6% Test Date: 02/08/2025 LDL Results: 122 Units: mg/dL % Change: +0% P-Magnesium Reviewed date:02/09/2025 09:20:18 AM Interpretation:Normal Performing Lab: Notes/Report: Test performed by [facility] [email or web address] [place] [address] William Majano MD, Forming Department Supervisor DAIIA: [id number] Magnesium 2.1 1.6-2.4 mg/dL P-Phosphorus Reviewed date:02/09/2025 09:20:18 AM Interpretation:Normal Performing Lab: Notes/Report: Test performed by [facility] [address] [place], [place] [address] [place], [place] [address] William Majano MD, Forming Department Supervisor CLIA: [id number] Phosphorus 3.6 2.5-4.5 mg/dL P-PSA Reviewed date:02/09/2025 09:20:18 AM Interpretation:Normal Performing Lab: Notes/Report: Test performed by [facility] [address] [place] [address] , [address], [place] [address] William Majano MD, Forming Department Supervisor CLIA: [id number] PSA 1.95 <4.00 ng/mL Please note this is an ultrasensitive PSA assay with a lower limit of detection of 0.014 ng/mL. This test is performed by the [employer] ECLIA methodology. Values obtained with different assay methods or kits cannot be directly compared. P-TSH reflex to FT4 Reviewed date:02/09/2025 09:20:18 AM Interpretation:Normal Performing Lab: Notes/Report: Test performed by [facility] [address] [place] [address] , [address], [place] [address] William Majano MD, Forming Department Supervisor CLIA: [id number] TSH reflex to FT4 1.73 0.43-5.25 mU/L Ankle-brachial index Reviewed date:02/15/2025 02:03:57 PM Interpretation: Performing Lab: Notes/Report: REASON FOR VISIT yearly physical Medications Medication SIG (Take, Route, Frequency, Duration) Notes Start Date End Date Status PriLOSEC OTC 20 MG 1 tab(s) orally once a day OTC 02/12 Active Tylenol 325 MG 2 tab(s) orally ever y 4 hours Active Claritin 10 MG 1 tab(s) orally once a day Active Sildenafil Citrate 20 MG 1 to 5 tablet O rally Once a day as needed 03/19/2023 Active Problems Problem Type SNOMED Code ICD Code Onset Dates Problem Status W/U Status Risk Notes Problem Claudication (84591931) Claudication (I73.9) Active confirmed Vital Signs Weight 197 lbs 02/08/2025 Blood pressure systolic 140 mm Hg 02/09/20 25 Blood pressure diastolic 70 mm Hg 025 Heart Rate 67 /min 02/08/2025 Height 71 in 02/08/2025 BMI 27.47 kg/m2 02/08/2025 Encounters Encounter Location Date Provider Diagnosis [facility] [address] [facility] [address] [place] [id number] 02/08/2025 Parvez Corbin Pure hypercholestero lemia E78.00 ; IFG (impaired fasting glucose) R73.01 ; Gastroesophageal reflux disease, unspecified whether esophagitis present K21.9 ; Left hip pain M25.552 ; Prostate cancer screening Z12.5 ; machine maintenance use of drug Z79.899 ; Muscle cramps R25.2 ; Claudication I73.9 and BMI 27.0-27.9,adult Z68.27 Assessments Encounter Date Diagnosis (ICD Code) Assessment Notes Treatment Notes Treatment Clinical Notes Section Notes 02/08/2025 Pure hypercholesterolemia (ICD-10 - E78.00) 02/08/2025 IFG (impaired fastin g glucose) (ICD-10 - R73.01) 02/08/2025 Gastroesophageal ref lux disease, unspecified whether esophagitis present (ICD-10 - K21.9) 02/08/2025 Left hip pain (ICD-1 0 - M25.552) 02/08/2025 Prostate cancer screening (ICD-10 - Z12.5) 02/08/2025 retirement use of michelle g (ICD-10 - Z79.899) 02/08/2025 Muscle cramps (ICD-1 0 - R25.2) 02/08/2025 Claudication (ICD-10 - I73.9) 02/08/2025 BMI 27.0-27.9,adult (ICD-10 - Z68.27) Plan Of Treatment Next Appt Details Follow Up: via phone to repo rt test results, Reason: Provider Name:Parvez Swift , 08/15/2025 09:15:00 AM, [address] [facility] [address] [facility], [address], [place], [id number], Progress Notes * GALEN PATELDOB:1945 ( 79 yo M)Acc No.[id number]:02/08/2025 Physical Patient: GALEN KENNY Provider: Citlalli Corbin M.D. :1945 A ge:79 Y S ex:Male Date:02/08/2025 Address:[address] [place] [address] [address] , [place], [id number] Subjective: * Chief Complaints: * 1 . Yearly physical. * HPI: C ardiology: 79 year old male presents with c/o Hyperlipidemia P t here to f/u. Pt states he is doing well and does not have any concerns. Pt is fasting today. * ROS: C ARDIOLOGY: Positive for m uscle cramps and pain in calfs when walking.? D ERMATOLOGY: no R alejandro. n o H negrito. G ASTROENTEROLOGY: no N ausea. n o V omiting. M USCULOSKELETAL: Positive for l eft hip. U ROLOGY: no D ifficulty urinating. n o B lood in urine. * Medical History: H yperlipidemia, PUD, Diverticulosis, Sigmoid, GI Bleed - 1991 & 1997, Anemia After GI Bleeding, Colon Polyps, Prostate Cancer Family Hx. * Surgical History: A ppendectomy , GI Bleed , EGD 2006, Colonoscopy: 2006, 2016, 2017, 2020 x , 2021 . * Hospitalization/Major Diagno stic Procedure: D enies Past Hospitalization. * Family History: F ather: 83 yrs, diagnosed with Hypertension, Heart Disease, Cancer. M other: 87 yrs, heart condition, diagnosed with Hypertension. P aternal Grand Father: . Paternal Grand Mother: . M aternal Grand Father: . M aternal Grand Mother: . S iblings: alive 76 yrs. C hildren: alive. 1 sister(s) - healthy. 2 son(s) [...] a day , Notes to Pharmacist: OTC, Discontinued Meclizine HCl 25 MG Tablet 1 tablet as needed Orally every 8 hrs , Medication List reviewed and reconciled with the patient * Allergies: N .K.D.A. Objective: * Vitals: W t: 197, Temp: 97.9, BP: 140/70, HR: 67, Nurse: padma, Ht: 71, BMI:27.47. * Examination: G eneral Examination: General Appearance: N AD. H eart: R SR. L ungs:?clear to auscultation. E xtremities: n o leg edema, pain with internal rotation of left hip. Assessment: * Assessment: 1. P ure hypercholesterolemia - E78.00 (Primary) 2 . I FG (impaired fasting glucose) - R73.01 3 . G astroesophageal reflux disease, unspecified whether esophagitis present - K21.9 4 . L eft hip pain - M25.552 5 . P rostate cancer screening - Z12.5 6 . L anthony term use of drug - Z79.899 7 . M uscle cramps - R25.2 8 . C laudication - I73.9 9 . B CA 27.0-27.9,adult - Z68.27 Plan: * Treatment: Value Reference Range A /G Ratio 1.6 1.1-2.5 - * A lbumin 4.5 3.5-5.3 - g/dL * A lkaline Phosphatase 38 L 40-129 - IU/L * A LT (SGPT) 18 <5-55 - IU/L * A ST (SGOT) 17 <5-46 - IU/L * B ilirubin, Total 0.5 <0.2-1.2 - mg/dL * B UN 12 8-23 - mg/dL * C alcium 9.6 8.6-10.4 - mg/dL * C hloride 103 97-108 - mmol/L * C O2 27 22-32 - mmol/L * C reatinine 1.04 0.70-1.30 - mg/dL * G lucose 110 H 65-99 - mg/dL * P otassium 4.6 3.5-5.3 - mmol/L * S odium 140 135-145 - mmol/L * P rotein 7.4 6.0-8.3 - g/dL * e GFR by Creatinine 73 >59 - mL/min/1.73m2 * Sangita Antonio 02/09/2025 09:2 0:13 AM > See phone encounter ?LAB: P-Lipid Panel (Collection Date & Time - 02/08/2025 10:10 AM)?trigs 172, hdl 35, chol/hdl 5.46, non-hdl 156, ldl/hdl 3.5* Value Reference Range C holesterol / HDL Ratio 5.46 H 0.00-4.99 - Ratio * C holesterol 191 <200 - mg/dL * H DL Cholesterol 35 L >39 - mg/dL * L DL Cholesterol (Calculation) 122 <130 - mg/d L * L DL/HDL Ratio 3.5 H <3.3 - Ratio * N on-HDL Cholesterol 156 H <130 - mg/dL * T riglycerides 172 H <150 - mg/dL * Sangita Antonio 02/09/2025 09:2 0:13 AM > See phone encounter ?LAB: P-TSH reflex to FT4 (Collection Date & Time - 02/08/2025 10:10 AM)? Normal* Value Reference Range T SH reflex to FT4 1.73 0.43-5.25 - mU/L * Sangita Antonio 02/09/2025 09:2 0:13 AM > See phone encounter 2.?IFG (impaired fasting glucose)?LAB: Glucose (In-House) (Collection Date & Time - 02/08/2025)?136* Value Reference Range b lood glucose 136 74 - 106 mg/dL * Miladis Felder 02/08/2025 11:44: 29 AM > Sangita Antonio 02/09/2025 09:20:13 AM > See phone encounter ?LAB: Glycohemoglobin A1c (in house) (Collection Date & Time - 02/08/2025)? 6.1* Value Reference Range g lycohemoglobin 6.1% 5 - 6.5 % * King Miladis 02/08/2025 11:48: 25 AM > Sangita Antonio 02/09/2025 09:20:13 AM > See phone encounter 3.?Prostate cancer screening?LAB: P-PSA (Collection Date & Time - 02/08/2025 10:10 AM)?Normal* Value Reference Range P SA 1.95 <4.00 - ng/mL * Sangita Antonio 02/09/2025 09:2 0:13 AM > See phone encounter 4.?machine maintenance use of drug?LAB: CBC Venipuncture (in house) (Collection Date & Time - 02/08/2025)* Value Reference Range w bc 6.6 3.5 - 10 * l ymph 26.7% 15 - 50 * m id 6.4% 2 - 15 * g ran 66.9% 35 - 80 * r bc 5.39 3.5 - 5.5 * h gb 16.5 11.5 - 16.5 * h ct 49.7 35 - 55 * m cv 92.2 75 - 100 * m ch 33.3 25 - 35 * m chc 232 31 - 38 * Carlie Felderira 02/08/2025 11:49: 30 AM > Sangita Antonio 02/09/2025 09:20:13 AM > See phone encounter 5.?Muscle cramps?LAB: P-Magnesium (Collection Date & Time - 02/08/2025 10:10 AM)?Normal* Value Reference Range M agnesium 2.1 1.6-2.4 - mg/dL * Sangita Antonio 02/09/2025 09:2 0:13 AM > See phone encounter ?LAB: P-Phosphorus (Collection Date & Time - 02/08/2025 10:10 AM)?Normal* Value Reference Range P hosphorus 3.6 2.5-4.5 - mg/dL * Sangita Antonio 02/09/2025 09:2 0:13 AM > See phone encounter 6.?Claudication?Imaging: Ankle-brachial index (Performed Date - 02/15/2025)* Estee Cuenca 02/08/2025 11:2 4:45 AM > no auth required; CPT code 99936; fax[facility] to [facility] SchedulingSangita Antonio 02/12/2025 10:50:57 AM EDT >Spoke with Chanel in scheduling as patient has not received call to schedule. She will reach out to patient and inform [facility] if they are unable to reach him.Ladi Dale 02/15/2025 02:03:48 PM EDT > see phone encounter * Procedure Codes: G 2211 Complex e/[place], [address] GLUCOSE TEST, 39224 GLYCATED HEMOGLOBIN TEST, Modifiers: QW , [address] CBC WITH AUTO DIFF, 3044F HG A1C LEVEL LT 7.0%, G8420 BMI<30 AND >=22 CALC & DOCU, G8753 MOST RECENT SYSTOLIC BP >= 140MM HG, G8754 MOST RECENT DIASTOLIC BP < 90MM HG * Follow Up: v ia phone to report test results * Images: Billing Information: * Visit Code: 24032 Office Visit, Est Pt., Level 4. * Procedure Codes: G2211 Complex e/[place]. [address] GLUCOSE TEST. 88144 GLYCATED HEMOGLOBIN TEST. Modifiers: QW 05793 CBC WITH AUTO DIFF. 3044F HG A1C LEVEL LT 7.0%. G8420 BMI<30 AND >=22 CALC & DOCU. G8753 MOST RECENT SYSTOLIC BP >= 140MM HG. G8754 MOST RECENT DIASTOLIC BP < 90MM HG. * Electronic signature of Ginette Corbin MD on 06/18/2025 at 09:30 AM EDT Sign off status: Pending * Provider: Citlalli Corbin M.D. Date: 0 02/08/2025 Generated for Jayden thompson/Yovany/Longitting on: 1 09:30 AM EDT History and Physical Notes * HPI (History of Present Illness) Category Sub-Category Detail Notes Category Not es Cardiology Hyperlipidemia Pt here to f/u. Pt states he is doing well and does not have any concerns. Pt is fasting today Examination Category Sub-Category Detail Notes Category Not es General Examination Heart: RSR Lungs: clear to auscultatio n Extremities: no leg edema, pain w ith internal rotation of left hip General Appearance: NAD
--- OUTSIDE RECORDS SUMMARY | 2025-03-14 06:15 | XMS_ITS ---
Author Organization [place] Address [address] [facility] [address] [place] [id number] Care Team Providers Care National Expansion Recruiter Name Role Phone Parvez Corbin Primary Care Provider [phone] Allergies No Known Allergies REASON FOR VISIT Follow Up on BP Medications Medication SIG (Take, Route, Frequency, Duration) Notes Start Date End Date Status Irbesartan 150 MG 2 tablets Orally Onc e a day at bedtime 02/28/2025 Active Tylenol 325 MG 2 tab(s) orally ever y 4 hours Active Claritin 10 MG 1 tab(s) orally once a day Active Sildenafil Citrate 20 MG 1 to 5 tablet O rally Once a day as needed 03/19/2023 Active PriLOSEC OTC 20 MG 1 tab(s) orally once a day OTC 02/12 Active Problems Problem Type SNOMED Code ICD Code Onset Dates Problem Status W/U Status Risk Notes Problem Essential hypertension (42206711) Essential hypertension (I10) Active confirmed Vital Signs Weight 210.6 lbs 03/14/2025 Blood pressure systolic 158 mm Hg 03/14/20 25 Blood pressure diastolic 78 mm Hg 025 Heart Rate 76 /min 03/14/2025 Height 71 in 03/14/2025 BMI 29.37 kg/m2 03/14/2025 Encounters Encounter Location Date Provider Diagnosis [place] [address] [facility] [address] [place] [id number] 03/14/2025 Parvez Corbin Essential hypertensi on I10 and BMI 29.0-29.9,adult Z68.29 Assessments Encounter Date Diagnosis (ICD Code) Assessment Notes Treatment Notes Treatment Clinical Notes Section Notes 03/14/2025 Essential hypertension (ICD-10 - I10) 03/14/2025 BMI 29.0-29.9,adult (ICD-10 - Z68.29) Plan Of Treatment Medication Medication Name Sig Start Date Stop Date Notes Irbesartan 150 MG 2 tablets Orally Once a day at bedtime 0 02/28/2025 Next Appt Details Follow Up: 5 Months, Reason: Provider Name:Parvez Swift ry, 08/15/2025 09:15:00 AM, [address] [facility] [address], [address], [place], [place], [phone], Progress Notes * GALEN PATELDOB:1945 ( 79 yo M)Acc No.[id number]:03/14/2025 Progress Notes Patient: GALEN KENNY Provider: Citlalli Corbin M.D. :1945 A ge:79 Y S ex:Male Date:03/14/2025 Address:[address] [place] [address] , [id number] Subjective: * Chief Complaints: * 1 . Follow Up on BP. * HPI: C ardiology: 79 year old male presents with c/o Blood Pressure Elevated P t here to f/u. Pt started on Irbesartan 150mg 02/28. Pt has been checking bp at home and states that bp has remained elevated . * ROS: D ERMATOLOGY: no R alejandro. [...] GI Bleed 1989', EGD 2006, Colonoscopy: 2006, 2016, 2017, 2020 x , 2021 . * Hospitalization/Major Diagno stic Procedure: D enies Past Hospitalization. * Family History: F ather: 83 yrs, diagnosed with Cancer, Hypertension, Heart Disease. M other: 87 yrs, heart condition, diagnosed with Hypertension. P aternal Grand Father: . Paternal Grand Mother: . M aternal Grand Father: . M aternal Grand Mother: . S ibvaleria: alive 76 yrs. Rubén harman: alive. 1 sister(s) - healthy. 2 son(s) [...] a day , Notes to Pharmacist: OTC, Taking Irbesartan 150 MG Tablet 1 tablet Orally Once a day at bedtime , Medication List reviewed and reconciled with the patient * Allergies: N .K.D.A. Objective: * Vitals: W t: 210.6, Temp: 98.0, BP: 158/78, HR: 76, Nurse: padma, Ht: 71, BMI:29.37. * Examination: G eneral Examination: General Appearance: N AD. H eart: R SR. L ungs:?clear to auscultation. Assessment: * Assessment: 1. E ssential hypertension - I10 (Primary) 2 . B ID 29.0-29.9,adult - Z68.29 Plan: * Treatment: * Procedure Codes: G 2211 Complex e/m visit add on, 1036F TOBACCO NON-USER, G8420 BMI<30 AND >=22 CALC & DOCU, G8950 PREHTN/HTN BP DOC INDCD F/U DOC, G8753 MOST RECENT SYSTOLIC BP >= 140MM HG, G8754 MOST RECENT DIASTOLIC BP < 90MM HG * Follow Up: 5 Months * Images: Billing Information: * Visit Code: 30494 Office Visit, Est Pt., Level 3. * Procedure Codes: G2211 Complex e/m visit add on. 1036F TOBACCO NON-USER. G8420 BMI<30 AND >=22 CALC & DOCU. G8950 PREHTN/HTN BP DOC INDCD F/U DOC. G8753 MOST RECENT SYSTOLIC BP >= 140MM HG. G8754 MOST RECENT DIASTOLIC BP < 90MM HG. * Electronic signature of Ginette Corbin MD on 06/18/2025 at 09:30 AM EDT Sign off status: Pending * Provider: Citlalli Corbin M.D. Date: 0 03/14/2025 Generated for Jayden thompson/Yovany/Longitting on: 1 09:30 AM EDT History and Physical Notes * HPI (History of Present Illness) Category Sub-Category Detail Notes Category Not es Cardiology Blood Pressure Elevated Pt here to f/u. Pt started on Irbesartan 150mg 02/28. Pt has been checking bp at home and states that bp has remained elevated Examination Category Sub-Category Detail Notes Category Not es General Examination Heart: RSR Lungs: clear to auscultatio n General Appearance: NAD
--- OUTSIDE RECORDS SUMMARY | 2025-06-18 09:33 | XMS_ITS | Clinical Summary ---
Author Organization Healthcare Address [address] [place] [address] Care Team Providers Care Undergraduate Intern Name Role Phone Parvez Corbin MD Primary Care Provider [phone] Allergies No known active allergies Medications omeprazole (PriLOSEC) [address] capsule 1 CAP, PO, Daily, 0 Refill(s) 09/25/2021 Active acetaminophen (Tylenol) 325 MG capsule 650 mg, PO, TID (3 times a day), PRN as needed for pain, 0 Refill(s) 12/10/2021 Active Social History Tobacco Use Types Packs/Day Years Used Date Smoking Tobacco: Never Smokeless Tobacco: Never Alcohol Use Standard Drinks/Week Comments Never 0 (1 standard drink = 0.6 oz pur e alcohol) Sex and Gender Information Value Date Recorded Sex Assigned at Not on file Legal Sex Male 3:51 PM EDT Gender Identity Not on file Sexual Orientation Not on file Last Filed Vital Signs Vital Sign Reading Time Taken Comments Blood Pressure 150/96 01/09/2022 8:55 AM EDT Pulse 62 01/09/2022 8:55 AM EDT Temperature 36.5 C (97.7 F) 01/09/2022 8:22 AM EDT Respiratory Rate 15 01/09/2022 8:55 AM EDT Oxygen Saturation 100% 01/09/2022 8:55 AM EDT Inhaled Oxygen Concentration - - Weight 89.1 kg (196 lb 6.9 oz) 01/09/2022 6:57 A M EDT Height 180.3 cm (5' 11 ) 01/09/2022 6:57 AM EDT Body Mass Index 27.4 01/09/2022 6:57 AM EDT Plan of Treatment Health Maintenance Due Date Last Done Comments [facility]-Depression Screening 1945 [facility]-Hepatitis C Screening 1945 [facility]-Medicare Annual Wellness (AWV) 1945 [facility]-/Child/Adol SDOH Screenings 1945 [facility]- SDOH Screenings 12/01/1963 [facility]-Adult SDOH Screenings 12/01/1963 [facility]-DTaP,Tdap,and Td Vaccine s (1 - Tdap) 1964 [facility]-Zoster Vaccines (2 of 3) 06/01/2016 04/06/2016 [facility]-RSV Vaccine: 60+ Years o r (1 - 1-dose 75+ series) 2020 AVX-CIZFH-05 Vaccine (1 - 2023- season) 2025 [facility]-Influenza Vaccine (#1) 05/14/202506/18, 06/12/2016 [facility]-Pneumococcal Vaccine: 50 + Years Completed 01/27/2018, 01/13/2017 Colonoscopy Discontinued 01/09/2022, 04/11/2021 [facility]-Colorectal Cancer Screening Discontinued CT Colonography Discontinued FIT-DNA Discontinued FIT Discontinued FOBT Discontinued HPV Vaccines Aged Out No longer eligi ble based on patient's age to complete this topic Sigmoidoscopy Discontinued [facility]-HIB Vaccines Aged Out No longer e ligible based on patient's age to complete this topic [facility]-Hepatitis A Vaccines Aged Out No longer eligible based on patient's age to complete this topic [facility]-IPV Vaccines Aged Out No longer e ligible based on patient's age to complete this topic [facility]-Rotavirus Vaccines Aged Out No lo nger eligible based on patient's age to complete this topic Medical Devices Implanted Type Area Fur Dyer Device Identifier Shelf Expiration Date Model / Serial / Lot Duraclip 16mm - [id number] Implanted:Qty : 1 on 04/11/2021 by Analilia Garcia MD at [facility] N/A: Other (See Comments) [employer]-[id number] 55 10/28/2023 [id number] / / [id number] Duraclip 16mm - [id number] Implanted:Qty : 1 on 04/11/2021 by Analilia Garcia MD at [facility] N/A: Other (See Comments) [employer]-1388 55 10/28/2023 [id number] / / [id number] Duraclip 16mm - [id number] Implanted:Qty : 1 on 01/09/2022 by Analilia Garcia MD at [facility] Descending Colon [employer]-[id number] 55 05/23/2023 [id number] / / [id number] Procedures Procedure Name Priority Date/Time Associated Diagnosis Comments COLONOSCOPY Routine 01/09/2022 8:20 AM EDT Colon polyp from Last 3 Months or Most Recently Relevant to Health Maintenance Results * Colonoscopy w FTRD (01/09/2022 8:20 AM EDT) Anatomical Region Laterality Modality Endoscopy Narrative 01/09/2022 8:31 AM EDT Impression Healthy-appearing mucosa at the site of previous Endoscopic Mucosal Resection (EMR) area in the distal ascending colon/hepatic flexure; biopsied One advanced transverse colon polyp (10 mm); removed using the EMR technique; clipped Diverticulosis hemorrhoids Recommendation Discharge patient home Resume previous diet Await pathology results Repeat colonoscopy in 3 years First degree relatives need to be screened for colorectal cancer at an earlier age as per current national society guidelines Findings and recommendations were discussed with the patient/family Indication Colon polyp S/p EMR Surveillance colonoscopy Medications See anesthesia record for anesthesia administered medications. Staff Staff Role Analilia Garcia MD Proceduralist JOHN Brown CRNA, MD Anesthesiologist Marc Gutierrez RN Endo Nurse Unknown Proceduralist 1 Proceduralist Preprocedure A history and physical has been performed, and patient medication allergies have been reviewed. The patient's tolerance of previous anesthesia has been reviewed. The risks and benefits of the procedure and the sedation options and risks were discussed with the patient. All questions were answered and informed consent obtained. Details of the Procedure The patient underwent monitored anesthesia care, which was administered by an anesthesia professional. The patient's blood pressure, heart rate, level of consciousness, respirations and oxygen were monitored throughout the procedure. A digital rectal exam was performed. A perianal exam was performed. The scope was introduced through the anus and advanced to the cecum. Retroflexion was performed in the rectum. The quality of bowel preparation was evaluated using the Cleveland Bowel Preparation Scale with scores of: right colon = 2, transverse colon = 2, left colon = 2. The total BBPS score was 6. Bowel prep was adequate. The patient experienced no blood loss. The procedure was not difficult. The patient tolerated the procedure well. There were no apparent complications. Attestation I personally performed the entire procedure Events Procedure Events Event Event Time ENDO SCOPE IN TIME 01/09/2022 7:55 AM ENDO CECUM REACHED 01/09/2022 8:02 AM ENDO SCOPE OUT TIME 01/09/2022 8:18 AM Specimens ID Type Source Tests Collected by Time A : Transverse colon polyp Tissue Transverse Colon SURGICAL PATHOLOGY EXAM Analilia Garcia MD 01/09/2022 0808 B : Polypectomy scar Tissue Ascending Colon SURGICAL PATHOLOGY EXAM Analilia Garcia MD 01/09/2022 0814 Findings Scar in the proximal ascending colon; not biopsied (this was previously biopsied) Scar in the distal ascending colon/hepatic flexure with healthy appearing mucosa; this was biopsied using a biopsy forceps. 10 mm sessile, adenomatous-appearing polyp in the proximal transverse colon; lift performed with a solution of methylene blue and hetastarch; removed en bloc by endoscopic mucosal resection (EMR) and retrieved specimen; placed 1 clip successfully Few small diverticula in the descending colon and sigmoid colon Medium, external hemorrhoids Leander Lizarraga MD GI PROCEDURE ORDERABLES Final Result from Last 3 Months or Most Recently Relevant to Health Maintenance Insurance [facility] [employer] Care Teams Undergraduate Intern Relationship Specialty Start Date End Date Parvez Corbin MD [address] [facility] [place] [address] [place] [address] PCP - General 04/11/21
--- OUTSIDE RECORDS SUMMARY | 2025-06-18 09:33 | XMS_ITS | Patient Health Record ---
Author Organization [facility] Address [address] [facility] [address] [place] [id number] Care Team Providers Care Cutting Table Operator Name Role Phone Olayinka Corbinian Primary Care Provider [phone] Allergies No Known Allergies Results Component Value [...] 38 Performing Lab: Notes/Report: Test performed by [facility] , [address], [place] [address] William Majano MD, Boat Captain CLIA: [id number] Sodium 140 135-145 mmol/L Potassium 4.6 3.5-5.3 [...] 3.5 Performing Lab: Notes/Report: Test performed by [facility], [address] , [address], [place] [address] William Majano MD, Boat Captain CLIA: [id number] Cholesterol 191 <200 mg/dL Triglycerides 172 <150 [...] Interpretation:Normal Performing Lab: Notes/Report: Test performed by [facility] [address] [place], [place] [address] [place] [address] William Majano MD, Boat Captain CLIA: [id number] Magnesium 2.1 1.6-2.4 mg/dL P-Phosphorus Reviewed date:02/09/2025 09:20:18 AM Interpretation:Normal Performing Lab: Notes/Report: Test performed by [facility] [address] [place] [address] , [place] [address], [place] [address] William Majano MD, Boat Captain CLIA: [id number] Phosphorus 3.6 2.5-4.5 mg/dL P-PSA Reviewed date:02/09/2025 09:20:18 AM Interpretation:Normal Performing Lab: Notes/Report: Test performed by [facility] [address] [place] , [place] [address] William Majano MD, Boat Captain CLIA: [id number] PSA 1.95 <4.00 ng/mL Please note this is an ultrasensitive PSA assay with a lower limit of detection of 0.014 ng/mL. This test is performed by the [employer] ECLIA methodology. Values obtained with different assay methods or kits cannot be directly compared. P-TSH reflex to FT4 Reviewed date:02/09/2025 09:20:18 AM Interpretation:Normal Performing Lab: Notes/Report: Test performed by [facility] [address] [place] , [place] [address] William Majano MD, Boat Captain CLIA: [id number] TSH reflex to FT4 1.73 0.43-5.25 mU/L Ankle-brachial index Reviewed date:02/15/2025 02:03:57 PM Interpretation: Performing Lab: Notes/Report: Medications Medication SIG (Take, Route, Frequency, Duration) Notes Start Date End Date Status hydroCHLOROthiazide 12.5 MG 1 tablet in the morning Orally Once a day; Duration: 90 days 06/12/2025 Active Tylenol 325 MG 2 tab(s) orally ever y 4 hours Active Claritin 10 MG 1 tab(s) orally once a day Active Sildenafil Citrate 20 MG 1 to 5 tablet O rally Once a day as needed 03/19/2023 Active PriLOSEC OTC 20 MG 1 tab(s) orally once a day OTC 03/03/2021 Active Irbesartan 300 MG 1 tablet Orally Once a day; Duration: 90 days Active Immunizations Vaccine Route Administration Date Status Comme nts xAdministration of injection Unknown 04/06/2016 Administered Prevnar (PCV20) IM Intramuscular 05/12/2024 Administered Prevnar (PCV13) IM Intramuscular 01/27/2018 Administered PNEUMOVAX 23 VACCINE IM Intramuscular 01/13/2017 Administe red Fluzone PF Quad (6-35 months) Unknown 06/12/2016 Administered Fluzone High Dose (65yr and older) IM Intramuscular 05/31/2020 Administered Fluzone High Dose (65yr and older) Unknown 06/18/2021 Administered Fluzone High Dose (65yr and older) IM Intramuscular 06/08/2022 Administered Fluzone High Dose (65yr and older) IM Intramuscular 05/12/2024 Administered Problems Problem Type SNOMED Code ICD Code Onset Dates Problem Status W/U Status Risk Notes Problem Hyperlipidemia (04709873) Hyperlipidemia (272.4) Active confirmed Problem Essential hypertension (32622615) Essential hypertension (I10) Active confirmed Problem History of anemia (563538986) History of anemia (Z86.2) Active confirmed Problem Erectile dysfunction (disorder) (488396905) Erectile dysfunction, unspecified erectile dysfunction type (N52.9) Active confirmed Problem Claudication (91904125) Claudication (I73.9) Active confirmed Problem History of gastrointestinal bleed (523725596) History of GI bleed (Z87.19) Active confirmed Problem Impaired fasting glycaemia (170313269) IFG (impaired fasting glucose) (R73.01) Active confirmed Problem Cardiac arrhythmia (359254310) Irregular heart rhythm (I49.9) Active confirmed Problem Pure hypercholesterolemia (608894489) Pure hypercholesterolemia (E78.00) Active confirmed Problem Gastroesophageal reflux disease (942841180) Gastroesophageal reflux disease, unspecified whether esophagitis present (K21.9) Active confirmed Vital Signs Heart Rate 76 /min 03/14/2025 Blood pressure diastolic 78 mm Hg 03/14/2025 Height 71 in 03/14/2025 Blood pressure systolic 158 mm Hg 03/14/2025 Weight 210.6 lbs 03/14/2025 BMI 29.37 kg/m2 03/14/2025 Encounters Encounter Location Date Provider Diagnosis [facility] [address] [place], [place] [id number] 02/08/2025 [place] Pure hypercholestero lemia E78.00 ; IFG (impaired fasting glucose) R73.01 ; Gastroesophageal reflux disease, unspecified whether esophagitis present K21.9 ; Left hip pain M25.552 ; Prostate cancer screening Z12.5 ; buttermaker helper use of drug Z79.899 ; Muscle cramps R25.2 ; Claudication I73.9 and BMI 27.0-27.9,adult Z68.27 [facility] [address] [place], [place] [id number] 03/14/2025 Parvez [place] Essential hypertensi on I10 and BMI 29.0-29.9,adult Z68.29 [facility] [address] [place], [place] [id number] 02/09/2025 [place] [facility] [address] [place], [place] [id number] 02/28/2025 [place] [facility] [address] [place], [place] [id number] 03/19/2025 Parvez [place] Essential hypertensi on I10 [facility] [address] [place], [place] [id number] 03/21/2025 Parvez [place] Essential hypertensi on I10 [facility] [address] [place], [place] [id number] 04/04/2025 Parvez [place] Essential hypertensi on I10 [facility] [address] [place] [id number] 06/07/2025 Parvez [place] Assessments Encounter Date Diagnosis (ICD Code) Assessment Notes Treatment Notes Treatment Clinical Notes Section Notes 03/14/2025 Essential hypertensi on (ICD-10 - I10) 03/14/2025 BMI 29.0-29.9,adult (ICD-10 - Z68.29) 03/19/2025 Essential hypertensi on (ICD-10 - I10) 03/21/2025 Essential hypertensi on (ICD-10 - I10) 04/04/2025 Essential hypertensi on (ICD-10 - I10) 02/08/2025 IFG (impaired fastin g glucose) (ICD-10 - R73.01) 02/08/2025 Pure hypercholesterolemia (ICD-10 - E78.00) 02/08/2025 Gastroesophageal ref lux disease, unspecified whether esophagitis present (ICD-10 - K21.9) 02/08/2025 Left hip pain (ICD-1 0 - M25.552) 02/08/2025 Prostate cancer screening (ICD-10 - Z12.5) 02/08/2025 detention use of michelle g (ICD-10 - Z79.899) 02/08/2025 Muscle cramps (ICD-1 0 - R25.2) 02/08/2025 Claudication (ICD-10 - I73.9) 02/08/2025 BMI 27.0-27.9,adult (ICD-10 - Z68.27) Plan Of Treatment Pending Test Test Name Order Date colonoscopy 12/04/2024 Holter Monitor- 48 hour 06/13/2025 Next Appt Details Provider Name:Parvez [place], 08/15/2025 09:15:00 AM, [address] [facility], [place], [place], [id number], Insurance Providers Payer Name Payer Address Payer Phone Subscriber Number Group Number Insured Name Patient Relationship to Insured Coverage Start Date Coverage End Date [employer] (MEDICAR E) [address] [address] [place] [address] [id number] GALEN PATEL Self - patient is the insured Medications Administered Medication Instructions Date of Administration Dosage Notes Dexamethasone 01/24/2008 1 mL Medical (General) History Medical History History ICD Code Hyperlipidemia PUD Diverticulosis, Sigmoid GI Bleed - 1991 & 1997 Anemia After GI Bleeding Colon Polyps Prostate Cancer Family Hx Surgical History Surgery Date(Month/Year) Appendectomy GI Bleed EGD 2006 Colonoscopy: 2006, 2016, 2017, 2020 x 2021 Hospitalization History Reason Date(Month/Year)
--- OUTSIDE RECORDS SUMMARY | 2025-06-18 09:33 | XMS_ITS ---
Author Organization Unknown Medications Date Medication Dosage DosageUnit StartDate StopDate StopReason Active DoseQuantity DoseUnit Dispense DispenseUnit Refills NdcCode DrugCode PharmacyId IsPrescription MappedMedication Srcstatus Custom 03/14 00:00 :00 Claritin 10 MG Tablet 1 [id number] 321 Taking 02/08 00:00 :00 Claritin 10 MG Tablet 1 [id number] 321 Taking 04/12 00:00 :00 Irbesartan 300 MG Tablet 1 90 Tablet 1 [id number] 413 Start 04/12 00:00 :00 Irbesartan 300 MG Tablet 0 7 Tablet 0 2 [id number] 413 Stop 04/04 00:00 :00 Irbesartan 300 MG Tablet 02/28/2025 00:00:00 1 7 Tablet 0 [id number] 21 413 P Unknown Status 03/21 00:00 :00 Irbesartan 300 MG Tablet 02/28/2025 00:00:00 1 [id number] 1 413 P Continue 03/19 00:00 :00 Irbesartan 150 MG Tablet 02/28/2025 00:00:00 1 180 Tablet 1 [id number] 313 P Unknown Status 03/14 00:00 :00 Irbesartan 150 MG Tablet 02/28/2025 00:00:00 1 [id number] 1 313 P Increase 03/14 00:00 :00 Irbesartan 150 MG Tablet 02/28/2025 00:00:00 1 30 1 [id number] 1 313 P Taking 02/28 00:00 :00 Irbesartan 150 MG Tablet 02/28/2025 00:00:00 1 30 1 [id number] 1 313 P Start 02/08 00:00 :00 Meclizine HCl 25 MG Tablet 05/12/2024 00:00:00 0 20 0 [id number] 7 661 P Discontinu ed 03/14 00:00 :00 PriLOSEC OTC 20 MG Tablet Delayed Release 03/03/2021 00:00:00 1 [id number] 5 905 P Taking 02/08 00:00 :00 PriLOSEC OTC 20 MG Tablet Delayed Release 03/03/2021 00:00:00 1 [id number] 5 905 P Taking 03/14 00:00 :00 Sildenafil Citrate 20 MG Tablet 03/19/2023 00:00:00 1 60 2 [id number] 1 798 P Taking 02/08 00:00 :00 Sildenafil Citrate 20 MG Tablet 03/19/2023 00:00:00 1 60 2 [id number] 1 798 P Taking 03/14 00:00 :00 Tylenol 325 MG Tablet 1 [id number] 810 Taking 02/08 00:00 :00 Tylenol 325 MG Tablet 1 [id number] 810 Taking
== END 2025-06-18 23:59 | disposition home or self-care (01) ==
LOC: RT 09:21
PROVIDERS: PCP Family Medicine; Visit Provider Family Medicine
DX: I49.1 Atrial premature depolarization (principal); I10 Essential (primary) hypertension
CPT/HCPCS: 93225; 93227